=== PATIENT | male | born 1975 | race Hispanic/Latino ===

== ENCOUNTER 2020-09-02 11:19 | Emergency (ER) | payer BC, OTHER ==
[2020-09-02] MEDS ORDERED: SODIUM CHLORIDE 0.9% 1000ML 1,000 ML IVS ONE (13:24)
--- NOTE | 2020-09-02 15:45 | ED.PDOC ---
History of Present Illness - General Chief Complaint: Diabetic Complaint Stated Complaint: high blood sugar Time Seen by Provider: 09/02/20 14:46 Source: patient, RN notes reviewed, Vital Signs reviewed Exam Limitations: no limitations - History of Present Illness Initial Comments: Patient is a 44-year-old male who presents with complaints of elevated blood sugar. Patient was recently diagnosed with diabetes, type II, and was started on Metformin and glipizide. Patient was seen over at the [facility] clinic who recommended he come to the ED. Patient has been complaining of some body aches and generalized malaise and fatigue. Patient denies any fevers. Patient is scheduled to go to work tomorrow at [employer] in the [place] but is concerned that he may have Covid. Timing/Duration: 24 hours Severity: mild, moderate Improving Factors: nothing Worsening Factors: nothing Associated Symptoms: malaise, weakness Allergies/Adverse Reactions: Allergies NO KNOWN ALLERGY Allergy (Verified 09/02/20 12:59) Home Medications: Ambulatory Orders Glimepiride 4 mg PO DAILY 09/02/20 Metformin HCl [Metformin Hydrochloride] 1,000 mg PO BID 09/02/20 Review of Systems - Review of Systems Constitutional: States: see HPI, malaise, weakness. Denies: chills, fever EENTM: States: no symptoms reported. Denies: eye pain, blurred vision, double vision Respiratory: States: no symptoms reported. Denies: cough, short of breath Cardiology: States: no symptoms reported. Denies: chest pain, palpitations, syncope Gastrointestinal/Abdominal: States: see HPI, nausea. Denies: abdominal pain, diarrhea, vomiting Genitourinary: States: no symptoms reported. Denies: dysuria, frequency Musculoskeletal: States: no symptoms reported. Denies: back pain, joint pain, neck pain Skin: States: no symptoms reported. Denies: change in color, rash Neurological: States: no symptoms reported. Denies: tingling, tremors, weakness Endocrine: States: see HPI, increased thirst. Denies: increased hunger, increased urine Hematologic/Lymphatic: States: no symptoms reported. Denies: blood clots, easy bleeding All other Systems: Reviewed and Negative Past Medical History (General) - Patient Medical History Hx Diabetes: Yes Surgical History: cholecystectomy - Female History Patient : No Family Medical History - Family History Mother Family History: Unknown Physical Exam - Physical Exam General Appearance: Alert, Comfortable, Well Developed, Well Groomed, Well Hydrated, Well Nourished Eye Exam: bilateral normal Ears, Nose, Throat: hearing grossly normal, normal ENT inspection, normal pharynx Neck: non-tender, full range of motion, supple Respiratory: chest non-tender, lungs clear, normal breath sounds, no respiratory distress Cardiovascular/Chest: normal peripheral pulses, regular rate, rhythm, no edema, no gallop, no JVD, no murmur Peripheral Pulses: radial,right: 2+, radial,left: 2+ Gastrointestinal/Abdominal: normal bowel sounds, non tender, soft Back Exam: normal inspection, no CVA tenderness, no vertebral tenderness Extremity: normal range of motion, non-tender, normal inspection, no pedal edema 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 09/02/20 15:52 Patient's labs are unremarkable. Patient is resting comfortably. Patient is tolerating p.o. Plan on discharge home with self isolation and monitoring. Patient will be provided work note for the next week. I discussed this plan of care with the patient he voices understanding and agreement. Igor Wang M.D. #[id number] - Results/Orders Results/Orders: 09/02/20 13:08 URINALYSIS Stat Laboratory Results - last 24 hr 09/02/20 09/02/20 09/02/20 12:05 13:10 13:10 WBC 6.4 RBC 5.34 Hgb 16.5 Hct 47.9 MCV 89.7 MCH 31.0 MCHC 34.5 RDW 13.2 Plt Count 240 MPV 9.2 Absolute Neuts (auto) 4.00 Absolute Lymphs (auto) 1.80 Absolute Monos (auto) 0.50 Absolute Eos (auto) 0.10 Absolute Basos (auto) 0.00 Neutrophils % 62.0 Lymphocytes % 27.4 Monocytes % 8.5 Eosinophils % 1.5 Basophils % 0.6 Sodium 138 Potassium 4.1 Chloride 101 Carbon Dioxide 24 Anion Gap 17.1 BUN 15 Creatinine 0.71 BUN/Creatinine Ratio 21.1 H POC Glucose 212 H Random Glucose 229 H Serum Osmolality 283.8 Calcium 9.0 Total Bilirubin 1.3 H AST 50 H ALT 81 H Alkaline Phosphatase 133 H Serum Total Protein 8.3 H Albumin 4.5 Globulin 3.8 H Albumin/Globulin Ratio 1.2 Lipase 51 Covid positive Departure - Departure Clinical Impression: COVID-19, Hyperglycemia Diabetes mellitus Qualifiers: Diabetes mellitus type: type 2 Diabetes mellitus complication status: without complication Time of Disposition: 15:55 Disposition: Discharge to Home or Self Care Condition: Good Departure Forms: ED Discharge - Pt. Copy, Patient Portal Self Enrollment Instructions: DI for Diabetes Type 2, Coronavirus Disease 2019 (COVID-19) Diet: diabetic diet Activity: increase activity as tolerated Referrals: JEFF RENE [Primary Care Provider] - 1 Week Home Medications: Ambulatory Orders Glimepiride 4 mg PO DAILY 09/02/20 Metformin HCl [Metformin Hydrochloride] 1,000 mg PO BID 09/02/20
[2020-09-02 16:19] VITALS: BP 124/86; TEMP 97.3; O2SAT 96
== END 2020-09-02 16:15 | disposition home or self-care (01) ==
LOC: ER 11:19
DX: U07.1 COVID-19 (principal); E11.65 Type 2 diabetes mellitus with hyperglycemia; Z79.84 Long term (current) use of oral hypoglycemic drugs
CPT/HCPCS: 36415; 36416; 80053; 82948; 83690; 85025; 87635; J7030